=== PATIENT | female | born 1975 | race Asian ===

== ENCOUNTER 2021-09-10 22:25 | Emergency (ER) | payer OTHER ==
[~2021-09-10] VITALS: Ht 162.6 cm; Wt 50.8 kg
[2021-09-10 22:54] VITALS: BP 126/75
== END 2021-09-11 02:00 | disposition home or self-care (01) ==
LOC: ER 22:29
DX: M25.551 Pain in right hip (principal); M79.89 Other specified soft tissue disorders; Z88.6 Allergy status to analgesic agent
CPT/HCPCS: 93971-TC